=== PATIENT | female | born 1955 | race African-American/Black ===

== ENCOUNTER 2016-12-23 04:09 | Emergency (ER) | payer MEDICARE, OTHER ==
[~2016-12-23] VITALS: Ht 157.5 cm; Wt 61.4 kg
[~2016-12-23 04:09] MED LIST: AMBILIFY PO; VIC; ZOLP5TAB2 PO; [UNRECOGNIZED DRUG - OTHER]
[2016-12-23] MEDS ORDERED: MAGNESIUM/ALUMINUM HYDROXIDE/SIMETHICONE 30ML UDC PO STA (06:41)
[2016-12-23] MEDS ORDERED: VISCOUS LIDOCAINE 2% 15 ML UDC PO STA (06:41)
[2016-12-23] MEDS ORDERED: DICYCLOMINE HCL 10MG CAPSULE PO ONE (06:45)
[2016-12-23] MEDS ORDERED: FAMOTIDINE 20MG/2ML VIAL IV ONE (06:45)
[2016-12-23 07:14] LABS: HEMATOCRIT. 40.8 % (36.0-48.0); HEMOGLOBIN. 13.7 g/dL (12.0-16.0); MEAN CORPUSCULAR HEMOGLOBIN 31.3 pg (28.0-32.0); MEAN CORPUSCULAR VOLUME 93.2 fL (81.0-99.0); MEAN PLATELET VOLUME 7.6 fl (7.4-10.4); PLATELET 285 x1000/uL (130-400); RED BLOOD CELL COUNT 4.38 mill/uL (4.2-5.4); RED CELL DISTRIBUTION WIDTH 12.7 % (11.6-14.6)
[2016-12-23 07:21] LABS: CARBON DIOXIDE 25 mEq/L (21-32); CHLORIDE 105 mEq/L (98-107); ETHANOL BLOOD < 10 mg/dL
[2016-12-23 07:53] LABS: PLATELET ESTIMATE NORMAL
[2016-12-23] MEDS ORDERED: LORAZEPAM 2MG/ML CPJ IV ONE (09:00)
[2016-12-23] MEDS ORDERED: KETOROLAC 30MG/ML VIAL IV ONE (09:00)
[2016-12-23 09:24] LABS: CLARITY URINE CLOUDY (CLEAR); COLOR URINE YELLOW (YELLOW); GLUCOSE URINE NEGATIVE (NEGATIVE); KETONES URINE NEGATIVE (NEGATIVE); LEUKOCYTE ESTERASE URINE NEGATIVE (NEGATIVE); NITRITE URINE NEGATIVE (NEGATIVE); OCCULT BLOOD URINE NEGATIVE (NEGATIVE); PH URINE >=9.0 (4.5-8.0); PROTEIN URINE TRACE (NEGATIVE); SPECIFIC GRAVITY URINE 1.021 (1.005-1.030); UROBILINOGEN URINE 0.2 E.U./dL (0.2-1.0)
[2016-12-23 10:00] LABS: *AMPHETAMINES SCREEN URINE NEGATIVE (NEGATIVE); *BARBITURATES SCREEN URINE NEGATIVE (NEGATIVE); *BENZODIAZEPINES SCREEN URINE NEGATIVE (NEGATIVE); *COCAINE SCREEN URINE NEGATIVE (NEGATIVE); CANNABINOID URINE SCREEN PRESUMTIVE POSITIVE (NEGATIVE); METHADONE URINE SCREEN NEGATIVE (NEGATIVE); OPIATES URINE SCREEN PRESUMTIVE POSITIVE (NEGATIVE); PHENCYCLIDINE URINE SCREEN NEGATIVE (NEGATIVE)
[2016-12-23] MEDS ORDERED: MORPHINE SULFATE 2 MG/ML CPJ (NOT FOR IM USE) IV ONE (11:00)
[2016-12-23 11:13] VITALS: BP 154/68
== END 2016-12-23 11:19 | disposition home or self-care (01) ==
LOC: ER 04:10
DX: N20.0 Calculus of kidney (principal); R11.0 Nausea; F43.10 Post-traumatic stress disorder, unspecified; G89.29 Other chronic pain; Z98.890 Other specified postprocedural states
CPT/HCPCS: 36415; 74000; 80053; 80305; 81001; 83690; 85025; 96374; 96375; 99285; G0482; J1885; J2060; J2270; J3490